=== PATIENT | female | born 1940 | race Asian ===

== ENCOUNTER 2016-10-25 09:12 | Inpatient (IN) | payer MEDICARE, BC ==
[~2016-10-25] VITALS: Ht 152.4 cm; Wt 61.4 kg
[~2016-10-25 09:12] MED LIST: ALBU18HF; BIMA2.5D EACHEYE; BRIM5DRO EACH EAR; BUDE10.2 INH; IPRA3AMP NEB; TIOT18CA INH
[2016-10-25] MEDS ORDERED: HYDROcodone/APAP 5/325 TABLET ONE (10:29)
[2016-10-25] MEDS ORDERED: HYDROcodone/APAP 5/325 TABLET PO ONE (10:30)
[2016-10-25] MEDS ORDERED: SODIUM CHLORIDE FLUSH 10ML SYR IVF ONE (13:30)
[2016-10-25 14:19] LABS: BLOOD UREA NITROGEN 10 mg/dL (7-18)
[2016-10-25] MEDS ORDERED: FEXO180T5 PO (15:06)
[2016-10-25] MEDS ORDERED: METO25TA91 PO (15:06)
[2016-10-25] MEDS ORDERED: SIMV10TA3 PO (15:06)
[2016-10-25] MEDS ORDERED: BRIN10DR EACHEYE (15:07)
[2016-10-25] MEDS ORDERED: SODIUM CHLORIDE 0.9% 1,000 ML IV SCH (16:28)
[2016-10-25] MEDS ORDERED: ONDANSETRON ODT 4 MG PO PRN (16:30)
[2016-10-25] MEDS ORDERED: ONDANSETRON 2MG/ML, 2ML IVPush PRN (16:30)
[2016-10-25] MEDS ORDERED: ENALAPRILAT 1.25 MG/ML, 2ML IVPush PRN (16:30)
[2016-10-25] MEDS ORDERED: POLYETHYLENE GLYCOL 17 GM PACKET PO PRN (16:30)
[2016-10-25] MEDS ORDERED: morphine SULFATE 10 MG/ML, 1ML IVPush PRN (16:30)
[2016-10-25] MEDS ORDERED: GUAIFENESIN/DM 200-20MG, 10ML UDC PO PRN (16:30)
[2016-10-25] MEDS ORDERED: ALBUTEROL/IPRATROPIUM 2.5MG/0.5MG, 3 ML ONE (17:12)
[2016-10-25 18:26] VITALS: BP 115/60
[2016-10-25] MEDS: SIMVASTATIN 10 MG TABLET PO SCH (19:43)
[2016-10-25] MEDS: HYDROcodone/APAP 5/325 TABLET PO PRN ×2 (19:43→23:42)
[2016-10-25] MEDS ORDERED: ALBUTEROL/IPRATROPIUM 2.5MG/0.5MG, 3 ML NPPB PRN (20:00)
[2016-10-26 02:01] VITALS: BP 97/60
[2016-10-26] MEDS: HYDROcodone/APAP 5/325 TABLET PO PRN ×4 (04:47→22:21)
[2016-10-26 05:58] LABS: BLOOD UREA NITROGEN 13 mg/dL (7-18)
[2016-10-26 06:02] LABS: ASPARTATE AMINO TRANSFERASE 22 U/L (15-37)
[2016-10-26 06:42] VITALS: BP 114/82
[2016-10-26] MEDS: ALBUTEROL/IPRATROPIUM 2.5MG/0.5MG, 3 ML NPPB SCH ×5 (06:45→23:00)
[2016-10-26] MEDS: SENNA/DOCUSATE TABLET PO SCH (09:46)
[2016-10-26] MEDS: METOPROLOL SUCCINATE 25 MG TAB.ER.24H PO SCH (09:46)
[2016-10-26] MEDS: ENOXAPARIN 40 MG/0.4 ML SQ SCH (12:39)
[2016-10-26 13:43] VITALS: BP 108/67
[2016-10-26 18:57] VITALS: BP 118/65
[2016-10-26] MEDS: SIMVASTATIN 10 MG TABLET PO SCH (21:15)
[2016-10-27 01:12] VITALS: BP 113/77
[2016-10-27] MEDS: ALBUTEROL/IPRATROPIUM 2.5MG/0.5MG, 3 ML NPPB SCH ×6 (02:14→21:51)
[2016-10-27] MEDS: HYDROcodone/APAP 5/325 TABLET PO PRN ×5 (03:24→23:31)
[2016-10-27 05:13] LABS: BLOOD UREA NITROGEN 11 mg/dL (7-18)
[2016-10-27] MEDS: SENNA/DOCUSATE TABLET PO SCH (08:09)
[2016-10-27] MEDS: METOPROLOL SUCCINATE 25 MG TAB.ER.24H PO SCH (08:09)
[2016-10-27 08:10] VITALS: BP 106/70
[2016-10-27] MEDS: ENOXAPARIN 40 MG/0.4 ML SQ SCH (11:31)
[2016-10-27 13:40] VITALS: BP 113/72
[2016-10-27 18:44] VITALS: BP 103/64
[2016-10-27] MEDS: SIMVASTATIN 10 MG TABLET PO SCH (21:38)
[2016-10-28 01:20] VITALS: BP 125/71
[2016-10-28] MEDS: ALBUTEROL/IPRATROPIUM 2.5MG/0.5MG, 3 ML NPPB SCH ×4 (03:00→14:30)
[2016-10-28 05:25] LABS: BLOOD UREA NITROGEN 13 mg/dL (7-18)
[2016-10-28 06:30] VITALS: BP 116/81
[2016-10-28] MEDS: HYDROcodone/APAP 5/325 TABLET PO PRN ×2 (09:25→16:12)
[2016-10-28] MEDS: METOPROLOL SUCCINATE 25 MG TAB.ER.24H PO SCH (09:26)
[2016-10-28] MEDS: SENNA/DOCUSATE TABLET PO SCH (09:26)
[2016-10-28] MEDS: ENOXAPARIN 40 MG/0.4 ML SQ SCH (11:21)
[2016-10-28] MEDS ORDERED: SENN1TAB7 PO (12:50)
[2016-10-28] MEDS ORDERED: ENOX40SY4 SQ (12:50)
[2016-10-28 13:40] VITALS: BP 116/60
== END 2016-10-28 18:10 | DRG 563 ==
LOC: ED 14:40 → EDIP 15:46 → 4NOR 17:41
PROVIDERS: ADMIT Hospitalist; ATTEND Hospitalist
PROC: 2W3MXYZ Immobilization of Left Lower Extremity using Other Device (ICD-10-PCS; principal; 2016-10-25)
DX: S82.145A Nondisplaced bicondylar fracture of left tibia, initial encounter for closed fracture (principal); E44.0 Moderate protein-calorie malnutrition; M25.062 Hemarthrosis, left knee; W01.0XXA Fall on same level from slipping, tripping and stumbling without subsequent striking against object, initial encounter; E87.6 Hypokalemia; S82.115A Nondisplaced fracture of left tibial spine, initial encounter for closed fracture; R73.9 Hyperglycemia, unspecified; S83.8X2A Sprain of other specified parts of left knee, initial encounter; J44.9 Chronic obstructive pulmonary disease, unspecified; Z80.7 Family history of other malignant neoplasms of lymphoid, hematopoietic and related tissues; Z82.49 Family history of ischemic heart disease and other diseases of the circulatory system; Z83.3 Family history of diabetes mellitus; Z99.81 Dependence on supplemental oxygen; Y93.89 Activity, other specified; Y92.89 Other specified places as the place of occurrence of the external cause; Y99.8 Other external cause status; Z68.26 Body mass index [BMI] 26.0-26.9, adult
CPT/HCPCS: 36415; 71010; 80048; 80053; 82040; 83735; 84100; 84439; 84443; 85025; 85610; 85730; 93005; 94640; J1650; J7620; Q0162

== ENCOUNTER → 2017-08-24 | Outpatient (CLI) | payer MEDICARE, BC ==
[~2017-08-24] MED LIST changes: +BRIN10DR EACHEYE; +ENOX40SY4 SQ; +FEXO180T15 PO; +METO25TA91 PO; +SENN1TAB7 PO; +SIMV10TA3 PO
== END | disposition home or self-care (01) ==
LOC: MERGE 13:30 → CFH 13:30
PROVIDERS: ATTEND Nurse Practitioner Family
DX: R91.8 Other nonspecific abnormal finding of lung field (principal)
CPT/HCPCS: 71250

== ENCOUNTER → 2017-10-26 | Outpatient (CLI) | payer MEDICARE, BC ==
[~2017-10-26] MED LIST changes: +OMNIPAQUE 350 MG/ML, 100ML BOTTLE ONE
== END | disposition home or self-care (01) ==
LOC: CFH 13:17
PROVIDERS: ATTEND Nurse Practitioner Family
DX: J43.9 Emphysema, unspecified (principal)
CPT/HCPCS: 71260; Q9967

== ENCOUNTER → 2018-06-27 | Outpatient (CLI) | payer MEDICARE, BC ==
[~2018-06-27] MED LIST changes: -IPRA3AMP NEB; +IPRA3AMP30 NEB; -OMNIPAQUE 350 MG/ML, 100ML BOTTLE ONE; +SENN-177 PO; -SENN1TAB7 PO
== END | disposition home or self-care (01) ==
LOC: CFH 13:35
PROVIDERS: ATTEND Internal Medicine Cardiovascular Disease
DX: I07.1 Rheumatic tricuspid insufficiency (principal); I42.9 Cardiomyopathy, unspecified; I27.20 Pulmonary hypertension, unspecified; I10 Essential (primary) hypertension; E78.5 Hyperlipidemia, unspecified; Z87.891 Personal history of nicotine dependence
CPT/HCPCS: 93306

== ENCOUNTER → 2018-07-31 | Outpatient (CLI) | payer MEDICARE, BC | END | disposition home or self-care (01) | LOC: CFH 13:18 | PROVIDERS: ATTEND Internal Medicine | DX: Z12.31 Encounter for screening mammogram for malignant neoplasm of breast (principal); M81.0 Age-related osteoporosis without current pathological fracture | CPT/HCPCS: 77063; 77080; 77067 ==

== ENCOUNTER → 2020-01-30 | Outpatient (CLI) | payer MEDICARE, BC ==
[~2020-01-30] MED LIST changes: +SIMV10TA18 PO; -SIMV10TA3 PO
== END | disposition home or self-care (01) ==
LOC: CFH 13:01
PROVIDERS: ATTEND Internal Medicine Cardiovascular Disease
DX: I08.2 Rheumatic disorders of both aortic and tricuspid valves (principal); R06.02 Shortness of breath; I42.9 Cardiomyopathy, unspecified
CPT/HCPCS: 93306